=== PATIENT | female | born 1990 | race American Indian/Alaskan Native ===

== ENCOUNTER 2019-01-12 10:11 | Emergency (ER) | payer MEDICAID ==
[2019-01-12] MEDS ORDERED: PROVENTIL IH ONE (10:35)
[2019-01-12] MEDS ORDERED: XOPENEX IH ONE (12:20)
[2019-01-12] MEDS ORDERED: NACL 0.9% 1000 ML 1,000 ML IV ONE (12:21)
--- NOTE | 2019-01-12 12:29 | Emergency Department Report ---
HPI - General Chief Complaint: Dyspnea/Respdistress Time Seen by Provider: 01/12/19 12:13 - HPI HPI: Room 6 The patient is 28-year-old female presenting with a chief complaint of shortness of breath and cough. The patient is 23 weeks . The patient states she used her nebulizer at home and it helped slightly. Patient states since yesterday she has had shortness of breath and chest discomfort consistent with her asthma. The patient states she's had a cough productive of yellow sputum. Patient denies fever or rhinorrhea. Patient denies abdominal pain or vaginal bleeding. Patient is not aware of any sick contacts Location: Lungs Duration: Since yesterday Quality: Feels like Asthma Severity: Moderate Modifying factors: [see above] Context: [see above] Mode of transportation: [not driving] ED Past Medical Hx - Past Medical History Hx Asthma: Yes - Surgical History Past Surgical History?: No - Family History Family history: no significant - Social History Smoking Status: Never Smoker Substance Use Type: None - Medications Home Medications: Home Medications Medication Instructions Recorded Confirmed Last Taken Type ALBUTEROL Inhaler (OR & NICU) 2 puff IH QID PRN #1 inhalation 01/12/19 Unknown Rx [Proair] Azithromycin [Zithromax Z-ABIOLA] 0 mg PO DAILY #6 tab 01/12/19 Unknown Rx ED Review of Systems ROS: Stated complaint: CHEST PAIN/ASTHMA/5 MOS Other details as noted in HPI Constitutional: denies: fever Eyes: denies: eye pain ENT: denies: throat pain Respiratory: cough, shortness of breath Endocrine: no symptoms reported Gastrointestinal: denies: abdominal pain Genitourinary: denies: abnormal menses Musculoskeletal: denies: back pain Physical Exam - Physical Exam Vital Signs: Vital Signs 01/12/19 01/12/19 10:31 12:00 Temperature 98 F Pulse Rate 113 H 74 Respiratory 16 16 Rate Blood Pressure 131/56 Blood Pressure 114/78 [Left] O2 Sat by Pulse 100 96 Oximetry Physical Exam: GENERAL: The patient is well-developed well-nourished female lying on stretcher not appearing to be in acute distress. [] HEENT: Normocephalic. Atraumatic. Extraocular motions are intact. Patient has moist mucous membranes. NECK: Supple. Trachea midline CHEST/LUNGS: Occasional rhonchi. Frequent cough. There is no respiratory distress noted. HEART/CARDIOVASCULAR: Regular. There is no tachycardia. There is no gallop rub or murmur. ABDOMEN: Abdomen is soft, nontender. Patient has normal bowel sounds. The patient is gravid SKIN: There is no rash. There is no edema. There is no diaphoresis. NEURO: The patient is awake, alert, and oriented. The patient is cooperative. The patient has normal speech MUSCULOSKELETAL: There is no evidence of acute injury. ED Course Vital Signs 01/12/19 01/12/19 10:31 12:00 Temperature 98 F Pulse Rate 113 H 74 Respiratory 16 16 Rate Blood Pressure 131/56 Blood Pressure 114/78 [Left] O2 Sat by Pulse 100 96 Oximetry - Reevaluation(s) Reevaluation #1: 01/12/19 13:58 Patient states she feels improved ED Medical Decision Making - Lab Data Result diagrams: 01/12/19 12:39 01/12/19 12:39 - Differential Diagnosis bronchitis, asthma exacerbation, pneumonia Critical care attestation.: If time is entered above; I have spent that time in minutes in the direct care of this critically ill patient, excluding procedure time. ED Disposition Clinical Impression: Acute bronchitis, Asthma exacerbation Disposition: DC-01 TO HOME OR SELFCARE Is pt being admited?: No Does the pt Need Aspirin: No Condition: Stable Instructions: Acute Bronchitis (ED) Additional Instructions: Return to the emergency department immediately should you develop worsening symptoms, fever, inability to tolerate food or liquid or any other concerns. Prescriptions: ALBUTEROL Inhaler (OR & NICU) [Proair] 2 puff IH QID PRN #1 inhalation PRN Reason: Shortness Of Breath Azithromycin [Zithromax Z-ABIOLA] 0 mg PO DAILY #6 tab Referrals: RALEIGH GODINEZ MD [Primary Care Provider] - 3-5 Days Time of Disposition: 14:00
[2019-01-12 13:03] LABS: Basophils % (Auto) 0.2 % (0.0-1.8); Eosinophils # (Auto) 0.9 K/mm3 (0.0-0.4); Eosinophils % (Auto) 8.3 % (0.0-4.3); Hematocrit 33.6 % (30.3-42.9); Hemoglobin 10.7 gm/dl (10.1-14.3); Lymphocytes # (Auto) 1.3 K/mm3 (1.2-5.4); Lymphocytes % (Auto) 11.5 % (13.4-35.0); Mean Corpuscular HGB Conc 32 % (30-34); Mean Corpuscular Volume 79 fl (79-97); Monocytes # (Auto) 1.2 K/mm3 (0.0-0.8); Monocytes % (Auto) 10.8 % (0.0-7.3); Platelet Count 333 K/mm3 (140-440); Red Blood Count 4.27 M/mm3 (3.65-5.03); Red Cell Distribution Width 16.8 % (13.2-15.2)
[2019-01-12 13:20] LABS: BUN/Creatinine Ratio 18; Blood Urea Nitrogen 9 mg/dL (7-17); Hemolysis Index 0
--- NOTE | 2019-01-12 13:27 | XRay Report ---
AP CHEST: HISTORY: Productive cough AP view of the chest demonstrates a normal mediastinal and cardiac contour with clear lungs and normal bony and soft tissue structures. IMPRESSION: Unremarkable AP chest.
[2019-01-12 14:26] VITALS: BP 114/61
== END 2019-01-12 14:24 | disposition home or self-care (01) ==
LOC: ED 10:11
DX: O99.512 Diseases of the respiratory system complicating pregnancy, second trimester (principal); J45.901 Unspecified asthma with (acute) exacerbation; Z91.010 Allergy to peanuts; Z88.0 Allergy status to penicillin; Z91.013 Allergy to seafood; Z3A.23 23 weeks gestation of pregnancy
CPT/HCPCS: 36415; 71045; 80048; 85025; 93005; 93010; 94640; 99284; J7030

== ENCOUNTER 2019-05-05 17:33 | Outpatient (CLI) | payer MEDICAID ==
[2019-05-05 19:40] VITALS: BP 130/74
--- NOTE | 2019-05-05 20:48 | Ultrasound Report ---
US OB BPP WO NON-STRESS, US OB LIMITED INDICATION / CLINICAL INFORMATION: NRNST. Evaluate VIJAYA and heart rate. COMPARISON: None available. FINDINGS: Single intrauterine gestation with cephalic presentation. Amniotic fluid index is normal at 10.8 cm. heart rate is 155 bpm. BREATHING MOVEMENT = 2 GROSS BODY MOVEMENT = 2 TONE = 2 QUALITATIVE AMNIOTIC FLUID VOLUME = 2 TOTAL BIOPHYSICAL SCORE = 8/8 IMPRESSION: 1. Normal amniotic fluid index and biophysical score. Signer Name: Gera Tee MD Signed: 05/05/2019 8:43 PM Workstation Name: [id number]
== END 2019-05-05 20:12 | disposition home or self-care (01) ==
LOC: TRG 17:33
PROVIDERS: ATTEND Obstetrics & Gynecology
DX: O47.1 False labor at or after 37 completed weeks of gestation (principal); Z3A.39 39 weeks gestation of pregnancy
CPT/HCPCS: 59025; 76815; 76819

== ENCOUNTER 2019-05-06 16:35 | Inpatient (IN) | payer MEDICAID ==
[2019-05-06] MEDS ORDERED: LACTATED RINGERS 1,000 ML IV ONE (16:59)
[2019-05-06] MEDS ORDERED: LACTATED RINGERS 1,000 ML IV SCH ×2 (17:00→18:00)
[2019-05-06] MEDS ORDERED: PEPCID IV ONE (17:52)
[2019-05-06] MEDS ORDERED: BICITRA PO ONE (17:52)
[2019-05-06] MEDS ORDERED: GENTAMICIN 80 MG in NACL 0.9% 100 ML IV ONE (17:52)
[2019-05-06] MEDS ORDERED: REGLAN IV ONE (17:52)
[2019-05-06] MEDS ORDERED: GENTAMICIN/NS 80 MG/100 ML 100 ML IV NR (18:00)
[2019-05-06] MEDS ORDERED: PITOCin/NS 20 UNIT/1000ML DRIP 20 UNITS/1,000 ML BAG IV SCH ×2 (18:00→22:00)
[2019-05-06] MEDS ORDERED: CLEOCIN 900 MG/50 mL 900 MG/50 ML BAG IV NR (18:00)
[2019-05-06 18:34] LABS: Basophils # (Auto) 0.1 K/mm3 (0.0-0.1); Basophils % (Auto) 0.6 % (0.0-1.8); Eosinophils # (Auto) 0.4 K/mm3 (0.0-0.4); Eosinophils % (Auto) 4.3 % (0.0-4.3); Hematocrit 31.4 % (30.3-42.9); Hemoglobin 9.8 gm/dl (10.1-14.3); Lymphocytes % (Auto) 9.4 % (13.4-35.0); Mean Corpuscular HGB Conc 31 % (30-34); Mean Corpuscular Volume 71 fl (79-97); Monocytes # (Auto) 0.8 K/mm3 (0.0-0.8); Monocytes % (Auto) 7.8 % (0.0-7.3); Platelet Count 335 K/mm3 (140-440); Red Blood Count 4.42 M/mm3 (3.65-5.03)
--- NOTE | 2019-05-06 18:39 | History and Physical Report ---
History of Present Illness Date of examination: 05/06/19 Date of admission: 05/06/19 Chief complaint: SIUP at 39 weeks and 1 day gestation with SROM. Previous C/section. History of present illness: Patient is a 28 year old , LMP 08/05/18, EDC 05/12/19 at 39 weeks and 1 day gestation who presented to triage complaining of having fluid leakage per vagina since 3 PM and irregular contractions. She denies any bleeding. She reports good movement. She had a previous C/section. Exam: tracing is CAT1. cervix 1 cm/30%/-2. + meconium fluid. Past History Past Medical History: asthma Past Surgical History: section Family/Genetic History: none Social history: no significant social history - Obstetrical History Expected Date of Delivery: 05/12/19 Actual Gestation: 39 Week(s) 1 Day(s) : 2 Para: 1 Number of Pregnancies: 1 Number of Living Children: 1 #1 Gender: Female year: 2[age][birth year] Birthweight: 2.268 kg Method of Delivery: Gestational age at delivery: 34 Medications and Allergies Allergies Allergy/AdvReac Type Severity Reaction Status Date / Time peanut Allergy Swelling Verified 05/06/19 16:57 Penicillins Allergy Unknown Verified 05/06/19 16:57 seafood Allergy Swelling Uncoded 01/12/19 10:13 Home Medications Medication Instructions Recorded Confirmed Last Taken Type ALBUTEROL Inhaler (OR & NICU) 2 puff IH QID PRN #1 inhalation 01/12/19 05/06/19 Unknown Rx [Proair] Active Meds: Active Medications Lactated Ringer's (Lactated Ringers) 1,000 mls @ 125 mls/hr IV DIRECT TANESHA Oxytocin/Sodium Chloride (Pitocin/Ns 20 Unit/1000ml Drip) 20 units in 1,000 mls @ 0 mls/hr IV TITR TANESHA Lactated Ringer's (Lactated Ringers) 1,000 mls @ 2,250 mls/hr IV PREOP TANESHA Stop: 05/07/19 18:27 Clindamycin HCl (Cleocin 900 Mg/50 Ml) 900 mg in 50 mls @ 100 mls/hr IV PREOP NR; Protocol Stop: 05/06/19 23:59 Last Admin: 05/06/19 18:33 Dose: 100 mls/hr Documented by: Gentamicin Sulfate/Sodium Chloride (Gentamicin/Ns 80 Mg/100 Ml) 100 mls @ 200 mls/hr IV PRECHEM NR Stop: 05/06/19 23:59 - Vital Signs Vital signs: Vital Signs Pulse BP 90 137/83 05/06/19 16:46 05/06/19 16:46 Temp Pulse Resp BP Pulse Ox 98.4 F 87 18 134/81 05/06/19 17:00 05/06/19 17:32 05/06/19 17:00 05/06/19 17:32 - Physical Exam Cardiovascular: Normal S1, Normal S2 Lungs: Positive: Clear to auscultation Vulva: both: normal Adnexa: both: normal Deep Tendon Reflex Grade: Normal +2 - Obstetrical FHR: category 1 Uterine Contraction Monitor Mode: External Cervical Dilatation: 1 Cervical Effacement Percentage: 2 Uterine Contraction Duration: Q4-5 mins Uterine Contraction Pattern: Irregular Uterine Contraction Intensity: Mild Results Result Diagrams: 05/06/19 17:21 Abnormal lab results 05/06/19 Range/Units 17:21 Johnson % (Auto) 7.8 H (0.0-7.3) % Seg Neutrophils % 77.9 H (40.0-70.0) % Seg Neutrophils # 8.0 H (1.8-7.7) K/mm3 All other labs normal. Assessment and Plan - Patient Problems (1) 39 weeks gestation of Current Visit: Yes Status: Acute (2) SROM (spontaneous rupture of membranes) Current Visit: Yes Status: Acute Plan to address problem: Admit to labor floor. Routine preop labs. IV hydration. Keep NPO. monitoring. Patient was counselled for repeat C/section. Risks, benefits, and alternatives of the procedure were discussed in detail with the patient which included but not limited to the risk of infection, hemorrhage requiring blood transfusion, injury to the bowel or bladder and blood vessels. The patient expressed understanding, her questions were answered, and she gave informed consent. Anesthesia notified. (3) Meconium in amniotic fluid Current Visit: Yes Status: Acute (4) Previous section Current Visit: Yes Status: Acute (5) Obesity Current Visit: Yes Status: Acute
[2019-05-06 19:05] LABS: Red Cell Distribution Width 22.1 % (13.2-15.2)
--- NOTE | 2019-05-06 19:28 | Anesthesia Consultation ---
Anesthesia Consult and Med Hx Date of service: 05/06/19 - Airway Anesthetic Teeth Evaluation: Good ROM Head & Neck: Adequate Mental/Hyoid Distance: Adequate Mallampati Class: Class II - Pulmonary Exam CTA: Yes - Cardiac Exam Cardiac Exam: RRR - Pre-Operative Health Status ASA Pre-Surgery Classification: ASA2, Emergency Proposed Anesthetic Plan: Spinal - Pulmonary Hx Asthma: Yes COPD: No Hx Pneumonia: No - Cardiovascular System Hx Hypertension: No - Central Nervous System Hx Seizures: No Hx Psychiatric Problems: No - Endocrine Hx Renal Disease: No Hx End Stage Renal Disease: No Hx Hypothyroidism: No Hx Hyperthyroidism: No - Hematic Hx Anemia: No Hx Sickle Cell Disease: No - Other Systems Hx Alcohol Use: No
[2019-05-06] MEDS ORDERED: NARCAN 0.4 MG/1 ML IV PRN ×2 (19:29→21:07)
[2019-05-06] MEDS ORDERED: ZOFRAN IV PRN ×2 (19:29→21:07)
[2019-05-06] MEDS ORDERED: PHENERGAN PR PRN ×2 (19:29→21:07)
[2019-05-06] MEDS ORDERED: PHENERGAN PO PRN (19:29)
[2019-05-06] MEDS ORDERED: DILAUDID IV PRN (19:29)
--- NOTE | 2019-05-06 19:29 | Anesthesia Day of Surgery ---
Anesthesia Day of Surgery - Day of Surgery Patient Examined: Yes Patient H&P Reviewed: Yes Patient is NPO: Yes
[2019-05-06] MEDS ORDERED: DEXMEDETOMIDINE IV ONE (19:37)
[2019-05-06] MEDS ORDERED: ZOFRAN ONE (19:49)
[2019-05-06] MEDS ORDERED: SODIUM CHLORIDE FLUSH SYRINGE 10 ML IV NR (20:00)
[2019-05-06] MEDS ORDERED: BENADRYL ONE (20:32)
[2019-05-06] MEDS ORDERED: TORADOL ONE (20:32)
[2019-05-06] MEDS ORDERED: DILAUDID ONE (20:33)
[2019-05-06] MEDS ORDERED: MILK OF MAGNESIA PO PRN (21:07)
[2019-05-06] MEDS ORDERED: TORADOL IV PRN (21:07)
[2019-05-06] MEDS ORDERED: ANUCORT-HC PR PRN (21:07)
[2019-05-06] MEDS ORDERED: MORPHINE IV PRN ×2 (21:07)
[2019-05-06] MEDS ORDERED: SENOKOT PO PRN (21:07)
[2019-05-06] MEDS ORDERED: LANSINOH TP PRN (21:07)
[2019-05-06] MEDS ORDERED: TUCKS PAD TP PRN (21:07)
[2019-05-06] MEDS ORDERED: TYLENOL PO PRN (21:07)
--- NOTE | 2019-05-06 21:15 | Operative Report ---
Operative Report Operative Report: Preoperative diagnosis 1. SIUP at 39 weeks and 1 day gestation with SROM. 2. Meconium amniotic fluid. 3. Previous C/section. Postoperative diagnosis: Same. Procedure: Repeat low-transverse section. Surgeon: Dr. Wheeler City Planner: none Anesthesia: spinal. IVF: RL 1000 cc EBL: 300 cc Urine: 200 cc clear Complications: none. Intraoperative findings: 1. A male found in an ASHA position, delivered at 8:25 PM, Apgars 8 at 1 minute and 9 at 5 minutes, weight 6 lbs. 14 oz. 2. Normal fallopian tubes and ovaries bilaterally. Procedure details: Risks, benefits, and alternatives of the procedure were discussed in detail with the patient which included but not limited to the risk of infection, hemorrhage requiring blood transfusion, injury to the bowel or bladder and blood vessels. The patient expressed understanding, her questions were answered, and she gave informed consent. The patient was taken to the operating room with an IV fluid infusing Ringers lactate. In the operating room, she was placed in a sitting position and given spinal anesthesia. She was then placed in a dorsal supine position with a leftward tilt. Lawrence catheter in Venodyne boots were placed. The abdomen was washed and she was prepared and draped in usual sterile fashion. After confirming adequate anesthesia, the Pfannenstiel skin incision was made in the lower abdomen about 2 cm above the pubic symphysis using the scalpel. This incision was carried down to the underlying fascia using the Bovie. The fascia was opened bilaterally in a curvilinear fashion using the Bovie. 2 straight Kocker clamps were used to grasp the upper edge of the fascia from which the underlying rectus abdominis muscles was dissected off using the Bovie. A similar procedure was done with the lower edge of the fascia to dissect the underlying rectus abdominis muscle. The muscle was bluntly from the midline by pulling. The parietal peritoneum was grasped with 2 hemostat clamps and entered sharply using Metzenbaum scissors. A quick survey of the anatomy revealed a gravid uterus, normal fallopian tubes and ovaries bilaterally. A bladder flap was created. Nicola'O retractor was placed in the incision for proper visualization. A low transverse incision was made in the lower uterine segment using the scalpel and extended bilaterally in a curvilinear fashion using bandage scissors. There was scant amount of meconium amniotic fluids. The was found in an ASHA position, the head was delivered atraumatically followed by the delivery of the shoulders and the rest of the body at 8:25 PM. The cord was clamped 2 and cut and the infant was handed off to the waiting table assembler metal. The was a male, Apgars were 8 at 1 minute and 9 at 5 minutes, weight was 6 pounds and 14 ounces. Cord blood was collected. The placenta was delivered manually and it was complete with a three-vessel cord. The uterine cavity was cleaned of clots and debris using dry lap sponges. The uterine incision was repaired in a running locked fashion using 0 Vicryl sutures. A second layer of imbrication was placed. The gutters were cleaned of clots and debris using dry lap sponges. After confirming adequate hemostasis, the instruments were removed from the abdominal cavity. The rectus muscle was r eapproximated in an interrupted fashion using 0 Vicryl sutures. The fascia was closed in a running fashion using 0 Vicryl sutures. The subcutaneous adipose layer was closed with 2.0 chromic suture. The skin was closed with bobo. Sterile dressing was placed. The counts of laps, needles, sponges, and instruments were correct 2. The patient tolerated the procedure well, she was taken to the recovery room in a stable condition.
--- NOTE | 2019-05-06 21:32 | Post Anesthesia Evaluation ---
- Post Anesthesia Evaluation Patient Participated: Yes Airway Patent: Yes Stable Respiratory Function: Yes Nausea/Vomiting: No Temp > 96.8F: Yes Pain Manageable: Yes Adequeate Hydration: Yes Anesthesia Complications: No Block Receding Appropriately: Yes Patient on Ventilator: No
[2019-05-06] MEDS ORDERED: SODIUM CHLORIDE FLUSH SYRINGE 10 ML IV PRN (22:00)
[2019-05-06] MEDS: DILAUDID IV PRN (23:05)
[2019-05-07] MEDS: TORADOL IV PRN ×2 (00:59→08:12)
[2019-05-07 09:37] LABS: Hematocrit 25.5 % (30.3-42.9); Hemoglobin 8.2 gm/dl (10.1-14.3)
[2019-05-07] MEDS: PRENATAL VITAMIN PO SCH (10:10)
[2019-05-07] MEDS: FEOSOL PO SCH (10:10)
--- NOTE | 2019-05-07 11:19 | Progress Note ---
Assessment and Plan A: POD#1 s/p Repeat c/s Pain well controlled Asymptomatic Anemia VSS Stable P: Routine PP/PO orders Continue Ferrous sulfate 325mg PO BID Encouraged ambulation in room Abdominal Binder Anticipate discharge home in 24-48 hours Subjective - Subjective Date of service: 05/07/19 Principal diagnosis: POD#1 s/p Repeat C/S Patient reports: appetite normal, voiding normally, pain well controlled, flatus, ambulating normally, no bowel movement [place]: doing well Objective - Vital Signs Latest vital signs: Vital Signs Temp Pulse Resp BP BP Pulse Ox 05/07/19 08:33 98.9 F 94 H 16 128/77 97 05/07/19 05:56 98.2 F 94 H 20 130/81 97 05/07/19 01:03 98.1 F 05/07/19 00:59 18 05/06/19 23:05 18 05/06/19 22:45 96.3 F L 79 16 124/59 98 05/06/19 22:15 73 12 126/60 100 05/06/19 22:00 97 H 11 L 117/78 100 05/06/19 21:45 76 12 107/71 100 05/06/19 21:40 73 12 115/67 100 05/06/19 21:35 74 16 114/67 100 05/06/19 21:30 88 13 122/73 96 05/06/19 21:25 77 13 109/58 99 05/06/19 21:19 97.0 F L 87 14 102/61 99 05/06/19 17:32 87 134/81 05/06/19 17:00 98.4 F 90 18 05/06/19 16:46 90 137/83 Intake and Output 05/06/19 05/07/19 05/07/19 23:59 07:59 15:59 Intake Total 2000 Output Total 600 350 200 Balance 1400 -350 -200 Intake: IV 2000 Output: Urine 600 350 200 Indwelling Catheter 350 200 Uretheral (Lawrence) 200 Other: Total, Output Amount 350 200 Weight 81.647 kg Estimated Blood Loss 300 - Exam Breasts: Present: normal Cardiovascular: Present: Regular rate, Normal S1, Normal S2, No murmurs Lungs: Present: Clear to auscultation, Normal air movement Abdomen: Present: normal appearance, soft, tenderness (as expected Post-op). Absent: distention Vulva: both: normal Uterus: Present: firm, fundal height below umbilicus (-1) Extremities: Present: normal Deep Tendon Reflex Grade: Normal +2 Incision: Present: normal, dry, intact, dressed (Pressure dressing CDI) - Labs Labs: Abnormal lab results 05/06/19 05/07/19 Range/Units 17:21 09:23 Hgb 9.8 L 8.2 L (10.1-14.3) gm/dl Hct 25.5 L (30.3-42.9) % MCV 71 L (79-97) fl MCH 22 L (28-32) pg RDW 22.1 H (13.2-15.2) % Lymph % (Auto) 9.4 L (13.4-35.0) % Lyon % (Auto) 7.8 H (0.0-7.3) % Lymph # 1.0 L (1.2-5.4) K/mm3 Seg Neutrophils % 77.9 H (40.0-70.0) % Seg Neutrophils # 8.0 H (1.8-7.7) K/mm3
[2019-05-07] MEDS: DILAUDID IV PRN (13:06)
[2019-05-07] MEDS ORDERED: PROVENTIL IH PRN (15:35)
[2019-05-07] MEDS: PERCOCET 5/325 PO PRN ×2 (17:59→23:36)
[2019-05-07] MEDS ORDERED: M-M-R II VACCINE SUB-Q ONE (21:08)
[2019-05-07] MEDS: IBUPROFEN PO PRN (21:40)
[2019-05-08] MEDS: PERCOCET 5/325 PO PRN ×3 (05:25→21:47)
[2019-05-08] MEDS ORDERED: BOOSTRIX IM ONE (06:00)
[2019-05-08] MEDS: PRENATAL VITAMIN PO SCH (09:31)
[2019-05-08] MEDS: FEOSOL PO SCH (09:31)
[2019-05-08] MEDS: IBUPROFEN PO PRN (09:32)
[2019-05-08] MEDS: MYLICON PO PRN ×2 (09:57→21:47)
--- NOTE | 2019-05-08 10:46 | Progress Note ---
Assessment and Plan - Patient Problems (1) S/P repeat low transverse Current Visit: Yes Status: Acute Plan to address problem: POD 2 - stable Continue routine postop orders Ambulation, abdominal binder encouraged prn Anticipate discharge in 24 hours (2) Anemia due to blood loss, acute Current Visit: Yes Status: Acute Plan to address problem: Asymptomatic Continue iron therapy Subjective - Subjective Date of service: 05/08/19 Principal diagnosis: POD #2; s/p Repeat LTCS Interval history: see H&P, Operative Report and PP/ASSISTANT PROPERTY MANAGER Progress Note Patient reports: appetite normal, voiding normally, pain well controlled, flatus, ambulating normally, no dizzy ambulation, no bowel movement [place]: doing well Objective - Vital Signs Latest vital signs: Vital Signs Temp Pulse Resp BP BP Pulse Ox 05/08/19 09:32 98.3 F 94 H 18 150/94 98 05/08/19 08:12 150/94 05/07/19 23:41 97.9 F 98 H 20 127/69 98 05/07/19 16:46 98.2 F 88 16 106/59 100 05/07/19 13:06 18 05/07/19 12:24 98.5 F 91 H 16 128/80 98 Intake and Output 05/07/19 05/08/19 05/08/19 23:59 07:59 15:59 Intake Total 880 120 Output Total 300 Balance 580 120 Intake: Oral 640 120 Intake, Free Water 240 Output: Urine 300 Void 300 Other: Total, Intake Amount 240 120 Total, Output Amount 300 # Voids Void 1 1 - Exam Cardiovascular: Present: Regular rate Lungs: Present: Clear to auscultation, Normal air movement Abdomen: Present: normal appearance, soft Vulva: both: normal Uterus: Present: normal, firm, fundal height at umbilicus Extremities: Present: normal Incision: Present: normal, dry, intact, other (bobo in place) Comments: scant lochia
[2019-05-09] MEDS: IBUPROFEN PO PRN ×3 (05:37→18:08)
[2019-05-09] MEDS ORDERED: M-M-R II VACCINE SUB-Q ONE (06:00)
[2019-05-09] MEDS: PERCOCET 5/325 PO PRN ×2 (08:45→23:53)
[2019-05-09] MEDS: PRENATAL VITAMIN PO SCH (11:38)
[2019-05-09] MEDS: FEOSOL PO SCH (11:38)
--- NOTE | 2019-05-09 11:47 | Progress Note ---
Assessment and Plan A: /postop day 3 S/P repeat low transverse section. Anemia secondary to and blood loss. Elevated blood pressure. History of preeclampsia with a previous . P: Labs repeated. Recheck BPs. Subjective - Subjective Date of service: 05/09/19 Principal diagnosis: POD #3; s/p Repeat LTCS Interval history: /postop day 3 S/P repeat LTCS. Patient is voiding without difficulty, ambulating well, tolerating a regular diet without nausea or vomiting, passing gas. Patient denies headache, visual disturbance, chest pain, shortness of breath, dizziness, abdominal pain, leg pain, or heavy bleeding. Patient reports: appetite normal, voiding normally, pain well controlled, flatus, ambulating normally, no dizzy ambulation, no nauseated [place]: doing well Objective - Vital Signs Latest vital signs: Vital Signs Temp Pulse Resp BP BP Pulse Ox 05/09/19 08:00 97.3 F L 102 H 18 135/87 97 05/08/19 23:23 98.2 F 101 H 20 134/89 100 05/08/19 18:14 98.7 F 86 18 145/82 97 Intake and Output 05/08/19 05/09/19 05/09/19 23:59 07:59 15:59 Intake Total 480 Balance 480 Intake: Oral 480 Other: Total, Intake Amount 240 # Voids Void 1 - Exam Cardiovascular: Present: Regular rate, Normal S1, Normal S2, No murmurs Lungs: Present: Clear to auscultation Abdomen: Present: normal appearance, soft, normal bowel sounds. Absent: distention, guarding, rigidity Uterus: Present: normal, firm, fundal height below umbilicus. Absent: bogginess, tenderness Extremities: Present: normal. Absent: tenderness, edema Incision: Present: normal, dry, intact
[2019-05-09 13:48] LABS: Hematocrit 26.8 % (30.3-42.9); Hemoglobin 8.5 gm/dl (10.1-14.3); Mean Corpuscular HGB Conc 32 % (30-34); Mean Corpuscular Volume 72 fl (79-97); Platelet Count 328 K/mm3 (140-440); Red Blood Count 3.74 M/mm3 (3.65-5.03)
[2019-05-09 13:50] LABS: Red Cell Distribution Width 21.9 % (13.2-15.2)
[2019-05-09 14:12] LABS: Alanine Aminotransferase 12 units/L (7-56); Albumin 2.7 g/dL (3.9-5); BUN/Creatinine Ratio 12; Blood Urea Nitrogen 6 mg/dL (7-17); Calcium 8.9 mg/dL (8.4-10.2); Hemolysis Index 5; Uric Acid 3.4 mg/dL (3.5-7.6)
[2019-05-09 23:51] LABS: Bilirubin,Urine NEG (Negative); Blood,Urine NEG (Negative); Color,Urine Yellow (Yellow); Mucus,Urine 2+ /HPF
[2019-05-10] MEDS: IBUPROFEN PO PRN ×2 (05:27→12:31)
[2019-05-10] MEDS: PRENATAL VITAMIN PO SCH (10:00)
[2019-05-10] MEDS: FEOSOL PO SCH (10:00)
--- NOTE | 2019-05-10 12:35 | Progress Note ---
Assessment and Plan A: /postop day 4 S/P repeat low transverse section. Anemia secondary to and blood loss. Elevated blood pressures (labile). P: Continue iron supplementation. Labetalol 100 mg po BID. If BPs stabilize, anticipate discharge home this evening or in AM. Subjective - Subjective Date of service: 05/10/19 Principal diagnosis: POD #4; s/p Repeat LTCS; elevated blood pressure Interval history: /postop day 4 S/P repeat LTCS. Patient is voiding without difficulty, ambulating well, tolerating a regular diet without nausea or vomiting, passing gas. Patient denies headache, visual disturbance, chest pain, shortness of breath, dizziness, abdominal pain, leg pain, or heavy bleeding. Elevated blood pressures (labile). Preeclamptic labs negative. Pt. has been started on Labetalol. Patient reports: appetite normal, voiding normally, pain well controlled, flatus, ambulating normally, no dizzy ambulation, no nauseated [place]: doing well Objective - Vital Signs Latest vital signs: Vital Signs Temp Pulse Resp BP BP Pulse Ox 05/10/19 12:22 98.4 F 93 H 18 143/90 97 05/10/19 08:57 98.2 F 93 H 20 134/78 98 05/10/19 05:15 98.6 F 88 20 147/98 97 05/09/19 23:17 99.2 F 119 H 20 136/88 94 05/09/19 20:01 98.2 F 96 H 20 132/81 96 05/09/19 17:05 100 H 136/85 05/09/19 16:23 97.7 F 111 H 18 152/93 97 Intake and Output 05/09/19 05/10/19 05/10/19 23:59 07:59 15:59 Intake Total 120 Balance 120 Intake: Oral 120 Other: Total, Intake Amount 120 # Voids Void 1 - Exam Cardiovascular: Present: Regular rate, Normal S1, Normal S2, No murmurs Lungs: Present: Clear to auscultation Abdomen: Present: normal appearance, soft, normal bowel sounds. Absent: distention, tenderness, guarding, rigidity Uterus: Present: normal, firm, fundal height below umbilicus. Absent: bogginess, tenderness Extremities: Present: normal. Absent: tenderness, edema Incision: Present: normal, dry, intact - Labs Labs: Abnormal lab results 05/09/19 05/09/19 Range/Units 13:20 13:20 WBC 11.5 H (4.5-11.0) K/mm3 Hgb 8.5 L (10.1-14.3) gm/dl Hct 26.8 L (30.3-42.9) % MCV 72 L (79-97) fl MCH 23 L (28-32) pg RDW 21.9 H (13.2-15.2) % BUN 6 L (7-17) mg/dL Creatinine 0.5 L (0.7-1.2) mg/dL Uric Acid 3.4 L (3.5-7.6) mg/dL Lactate Dehydrogenase 349 H (91-180) units/L Albumin 2.7 L (3.9-5) g/dL
[2019-05-10] MEDS ORDERED: NORMODYNE PO SCH (13:00)
[2019-05-10 19:23] VITALS: BP 125/65
--- NOTE | 2019-05-10 19:34 | Discharge Summary ---
Providers - Providers Date of Admission: 05/06/19 19:35 Date of discharge: 05/10/19 Attending physician: SKYLAR CRUZ MD None Primary care physician: SKYLAR CRUZ MD Hospitalization Reason for admission: section Delivery: Procedure: repeat low transverse Incision: normal, dry, intact Other procedures: none complications: none Discharge diagnosis: IUP at term delivered [place] baby: male Pertinent studies: Labs Hospital course: Stable hospital course Condition at discharge: Good Disposition: DC-01 TO HOME OR SELFCARE - Discharge Diagnoses (1) Term delivered Status: Acute (2) Anemia due to blood loss Status: Acute (3) Obesity Status: Acute Plan - Discharge Medications Prescriptions: Ibuprofen [Motrin] 800 mg PO Q8HR PRN #30 tablet PRN Reason: Pain, Moderate (4-6) oxyCODONE /ACETAMINOPHEN [Percocet 5/325] 1 tab PO Q4HR #14 tab - Provider Discharge Summary Activity: routine, no sex for 6 weeks, no heavy lifting 4 weeks, no strenuous exercise Diet: routine Instructions: routine Additional instructions: Continue taking your Labetalol, iron, and vitamins at home. I have called the following Rx to [facility] pharmacy on [address]: Labetalol 100 mg, #60, 1 po BID. Call your doctor immediately for: * Fever > 100.5 * Heavy vaginal bleeding ( >1 pad per hour) * Severe persistent headache * Shortness of breath * Reddened, hot, painful area to leg or breast * Drainage or odor from incision. * Keep incision clean and dry at all times and follow doctor's instructions regarding bathing/showering - Follow up plan Follow up: SKYLAR CRUZ MD [Primary Care Provider] - 3 Days Forms: [facility] Discharge Summary, Work/School Release Form
== END 2019-05-10 20:45 | disposition home or self-care (01) | DRG 765 ==
LOC: TRG 16:35 → OBSVTOIN 19:35 → APU 19:35 → OB 22:47
PROVIDERS: ADMIT Obstetrics & Gynecology; ATTEND Obstetrics & Gynecology
PROC: 10D00Z1 Extraction of Products of Conception, Low, Open Approach (ICD-10-PCS; principal; 2019-05-06)
PROC: 3E0234Z Introduction of Serum, Toxoid and Vaccine into Muscle, Percutaneous Approach (ICD-10-PCS; 2019-05-07)
DX: O34.211 Maternal care for low transverse scar from previous cesarean delivery (principal); D62 Acute posthemorrhagic anemia; E66.9 Obesity, unspecified; O99.214 Obesity complicating childbirth; O99.02 Anemia complicating childbirth; O77.0 Labor and delivery complicated by meconium in amniotic fluid; O99.52 Diseases of the respiratory system complicating childbirth; Z91.010 Allergy to peanuts; Z88.0 Allergy status to penicillin; Z37.0 Single live birth; Z3A.39 39 weeks gestation of pregnancy; Z91.013 Allergy to seafood; Z79.899 Other long term (current) drug therapy; Z23 Encounter for immunization
CPT/HCPCS: 36415; 59025; 80053; 81001; 83615; 84550; 85014; 85018; 85025; 85027; 86592; 86850; 86900; 86901; 90471; 90707; 90715; 96360; 96361; G0378; J1170; J1200; J1580; J1885; J2405; J2590; J2765; J3490; J7120

== ENCOUNTER 2019-05-18 21:22 | Emergency (ER) | payer MEDICAID ==
--- NOTE | 2019-05-18 22:16 | Emergency Department Report ---
Chief Complaint: Skin/Abscess/Foreign Body Stated Complaint: POST STAPLE IN PAIN Time Seen by Provider: 05/18/19 22:08 - HPI History of Present Illness: 28 y o female 2 weeks postparturm presents to ED for staple removal from C section on 05/06/2019 at [facility] denies any symptoms [place] called office but no answer today - ROS Review of Systems: as noted in HPI - Exam Physical Exam: ABD: no wound dehiscence or pus drainaige or tenderness GEN: AAO x 3 no acute distress MSE screening note: Focused history and physical exam performed. Due to findings the following was ordered: ED Medical Decision Making - Medical Decision Making 28 y o presents for staple removal Discussed to follow up with [facility] tomorrow discussed with pt that her obgyn will take out her bobo and see her for her 2 weeks pp visit Discussed to contine taking her IBu 800mg as needed for pain Pt understands instructions and will f/u ED Disposition for MSE Clinical Impression: Encounter for removal of bobo Disposition: MED SCREENING EXAM-LEFT Is pt being admited?: No Does the pt Need Aspirin: No Condition: Stable Additional Instructions: follow up with [facility] tomorrow for staple removal Referrals: PRIMARY CARE, [Primary Care Provider] - 3-5 Days Forms: Work/School Release Form(ED), Accompanied Note Time of Disposition: 22:15
[2019-05-18 22:23] VITALS: BP 149/93
== END 2019-05-18 22:24 | disposition left against medical advice (07) ==
LOC: ED 21:22
DX: Z48.02 Encounter for removal of sutures (principal); Z88.0 Allergy status to penicillin; Z91.010 Allergy to peanuts; Z91.013 Allergy to seafood